=== PATIENT | female | born 1990 | race Caucasian/White ===

== ENCOUNTER 2018-07-28 15:02 | Outpatient (CLI) | payer BC ==
--- NOTE | 2018-07-28 17:40 | ULT ---
THYROID ULTRASOUND: 07/28/18 COMPARISON: None. HISTORY: Thyroid nodules. TECHNIQUE: Multiplanar olivas scale and color doppler images were obtained in a thyroid ultrasound. FINDINGS: There are two nodules seen in the right lobe of the thyroid. Both of these nodules are well circumscr ibed and wider than tall. These are slightly hypoechoic without suspicious calcifications. The larger nodule measures 2.9 cm in greatest dimension. The thyroid lobes measures 4.7 and 4.0 cm in length on the right and left, respectively. IMPRESSION: The larger lesion in the right thyroid lobe is a TIRADS category 4 lesion. Given its size, an FNA is recommended of the larger right thyroid nodule. POS: [facility]
== END 2018-07-28 15:03 | disposition home or self-care (01) ==
LOC: SCSULT 15:02
PROVIDERS: ATTEND Specialist
DX: E07.9 Disorder of thyroid, unspecified (principal); E04.2 Nontoxic multinodular goiter
CPT/HCPCS: 76536